=== PATIENT | female | born 1990 | race American Indian/Alaskan Native ===

== ENCOUNTER 2017-06-29 09:41 | Day surgery (SDC) | payer MEDICAID ==
[~2017-06-29 09:41] MED LIST: MARCAINE 0.25% INFILTRATI ONE
--- NOTE | 2017-06-29 10:06 | Short Stay Summary ---
Short Stay Documentation Date of service: 06/29/17 Narrative H&P: Patient is a 27 year old who presents today for permanent sterilization. She has had a Nexplanon in place for 3 years and is now requesting removal of the same - History Principal diagnosis: Undesired fertility H&P: obtained from office Past Medical History: No medical history Past Surgical History: (x2) Social history: - Allergies and Medications Current Medications: Allergies No Known Allergies Allergy (Unverified 06/27/17 17:20) Home Medications Medication Instructions Recorded Confirmed Last Taken Type No Known Home Medications [No 06/27/17 06/27/17 Unknown History Reported Home Medications] - Physical exam General appearance: no acute distress Integumentary: no rash, no growths HEENT: Atraumatic Lungs: Clear to auscultation, Normal air movement Breasts: deferred Heart: Regular rate, Normal S1, Normal S2 Gastrointestinal: normal, normoactive bowel sounds Female Genitourinary: normal Rectal Exam: deferred Extremities: No edema - Brief post op/procedure progress note Date of procedure: 06/29/17 Pre-op diagnosis: Undesired fertility, Presence of Nexplanon Post-op diagnosis: same (with extensive pelvic adhesions) Procedure: 1. Removal of Nexplanon 2. Left partial salpingectomy 3. Right tubal ligation 4. Lysis of Adhesions Anesthesia: GETA Findings: Densely adhered uterus to anterior abdominal wall Large right ovarian cyst, normal left tube and ovary Surgeon: ANI JHA Estimated blood loss: minimal Pathology: list (portion of left fallopian tube) Specimen disposition: to lab Condition: stable - Hospital course Hospital course: unremarkable - Disposition Condition at discharge: Good Disposition: [id number] TO HOME OR SELFCARE Short Stay Discharge Plan Activity: advance as tolerated Weight Bearing Status: Weight Bear as Tolerated Diet: regular Follow up with: ANI JHA MD [Primary Care Provider] - 14 Days Prescriptions: Ibuprofen [Motrin] 800 mg PO Q8HR PRN #30 tablet PRN Reason: Pain oxyCODONE /ACETAMINOPHEN [Percocet 5/325 mg] 2 tab PO Q6H PRN #30 tablet PRN Reason: Pain, Moderate (4-6)
[2017-06-29] MEDS ORDERED: ZEMURON IV ONE (10:30)
[2017-06-29] MEDS ORDERED: XYLOCAINE MPF 2% ONE (10:30)
[2017-06-29] MEDS ORDERED: NEOSTIGMINE ONE (10:30)
[2017-06-29] MEDS ORDERED: ROBINUL ONE (10:30)
[2017-06-29] MEDS ORDERED: SUBLIMAZE ONE ×2 (10:31→12:13)
[2017-06-29] MEDS ORDERED: DIPRIVAN 10 MG/ML IV ONE (10:32)
[2017-06-29] MEDS ORDERED: ZOFRAN ONE (10:35)
[2017-06-29] MEDS ORDERED: PERCOCET 5/325 PO PRN (10:38)
--- NOTE | 2017-06-29 10:38 | Anesthesia Day of Surgery ---
Anesthesia Day of Surgery - Day of Surgery Patient Examined: Yes Patient H&P Reviewed: Yes Patient is NPO: Yes
--- NOTE | 2017-06-29 10:38 | Anesthesia Consultation ---
Anesthesia Consult and Med Hx Date of service: 06/29/17 - Airway Anesthetic Teeth Evaluation: Good ROM Head & Neck: Adequate Mental/Hyoid Distance: Adequate Mallampati Class: Class II Intubation Access Assessment: Probably Good - Pulmonary Exam CTA: Yes - Cardiac Exam Cardiac Exam: RRR - Pre-Operative Health Status ASA Pre-Surgery Classification: ASA2 Proposed Anesthetic Plan: General - Pulmonary Hx Smoking: Yes Hx Asthma: No COPD: No Hx Pneumonia: No - Cardiovascular System Hx Hypertension: No Hx Angina: No - Central Nervous System Hx Seizures: No Hx Psychiatric Problems: No - Gastrointestinal Hx Gastroesophageal Reflux Disease: Yes (with ) - Endocrine Hx Renal Disease: No Hx End Stage Renal Disease: No Hx Liver Disease: No Hx Hypothyroidism: No Hx Hyperthyroidism: No - Hematic Hx Anemia: No Hx Sickle Cell Disease: No - Other Systems Hx Alcohol Use: Yes (occas) Hx Cancer: No
[2017-06-29 10:49] LABS: Hematocrit 38.7 % (30.3-42.9); Hemoglobin 12.6 gm/dl (10.1-14.3)
[2017-06-29] MEDS ORDERED: ANCEF/STERILE WATER 2 GM/20 ML 2 GM/20 ML SYRINGE IV NR (11:00)
[2017-06-29] MEDS ORDERED: PEPCID PO NR (11:00)
[2017-06-29] MEDS ORDERED: MARCAINE 0.25% INFILTRATI ONE ×2 (11:00→13:00)
[2017-06-29] MEDS ORDERED: LACTATED RINGERS 1,000 ML IV SCH (11:00)
[2017-06-29] MEDS ORDERED: VERSED IV NR (11:00)
[2017-06-29] MEDS ORDERED: HEPARIN/NS 5000 UNIT/500ML(CATH LAB) 0 ML IR ONE (12:12)
[2017-06-29] MEDS ORDERED: VERSED ONE (12:12)
[2017-06-29] MEDS ORDERED: XYLOCAINE 2% INFILTRATI ONE (12:13)
[2017-06-29] MEDS ORDERED: DILAUDID ONE (13:09)
--- NOTE | 2017-06-29 13:38 | Operative Report ---
Operative Report Operative Report: Preoperative diagnosis: 1. Presence of [place] 2.Undesired fertility Postoperative diagnosis: Same with extensive pelvic adhesions Procedure: 1. Removal of contraceptive implant 2. Lysis of adhesions 3. Partial left salpingectomy 4. Right tubal ligation Surgeon: Abi Ta Anesthesia: General EBL: Minimal IV fluids: [900] Urine output:[100] Findings: 1. Extensive uterine adhesions to the anterior abdominal wall 2. Large right ovarian cyst 3. Normal left tube and ovary Specimens: Portion of right and left fallopian tube, Nexplanon Contraceptive Implant Complications: None The patient was properly identified as herself. She was then taken to the OR with IV running and in place. She was given general anesthesia without difficulty. She was first placed in a dorsal supine position. Her left arm was then prepped and draped with sterile towels. The contraceptive device was palpated just beneath the skin of the left arm. A small incision was made just beyond the tip of the device. Using hemostats the device was grasped and maneuvered out from underneath the skin. Once completely removed the incision was covered with Steri-Strips. A sterile dressing was then placed over the incision. Following this, She was placed in a dorsal lithotomy position. She was then prepped and draped in normal sterile fashion. Attention was turned to the patient's vagina. Her bladder was drained of clear urine with a red rubber catheter. The speculum was then placed the patient's vagina. The cervix was visualized and grasped with tenaculum. The acorn cannula was then inserted. The surgeon's gloves were changed and attention turned to the patient's abdomen. A small incision was made in the patient's umbilicus incision a 5 mm trocar was placed. Intra-abdominal placement could not be confirmed due to the girth of the patient and abundant scar tissue . A second incision was made in the left upper quadrant lateral to the umbilicus. This incision another trocar was placed and was successful in entering the peritoneum .The laparoscope confirmed intra-abdominal placement. The abdomen was insufflated with CO2 gas to approximately 25 mmHg. initial survey of the pelvis revealed dense amounts of scar tissue involving the uterus and the anterior abdominal wall. A third incision was made in the left lower quadrant and a trocar was attempted to be inserted through this incision however due to scar tissue the trocar was unsuccessful in getting intra-abdominal placement. Attention was turned again to the umbilical incision and this time a longer trocar was placed into that incision which was able to successfully reach the intra-abdominal cavity. Some of the scar tissue was taken down from the anterior abdominal wall enough to visualize both adnexa without difficulty . The left fallopian tube was found and followed out to the fimbriated ends. That tube was cauterized at the portion nearest the cornua, then cauterized across the broad ligament until the tube was completely detached. It was then handed off the field for pathology. The right tube was identified but was noted to be densely adherent to a large cyst on the right ovary and tube was cauterized in the midportion and a small amount attached and handed off for pathology. The cyst on the right ovary was then punctured and allowed to drain. The patient was then taken out of Trendelenburg and all excess fluid was suctioned from the patient's pelvis There was excellent hemostasis at the end of this portion of the procedure. Each tube was handed off for pathology. At this point the abdomen was deflated. All instruments were then removed from the abdomen. The incisions were then closed with 4-0 Monocryl. The incisions were also injected with quarter percent Marcaine. The patient tolerated the procedure well she was then awakened and taken recovery in stable condition. Sponge needle and instrument counts were correct 2.
[2017-06-29] MEDS: MORPHINE IV PRN ×2 (13:40→13:50)
[2017-06-29 18:07] VITALS: BP 103/63
== END 2017-06-29 15:17 | disposition home or self-care (01) ==
LOC: OR 09:41
PROVIDERS: ATTEND Obstetrics & Gynecology
DX: Z30.2 Encounter for sterilization (principal); N83.201 Unspecified ovarian cyst, right side; K21.9 Gastro-esophageal reflux disease without esophagitis; N73.6 Female pelvic peritoneal adhesions (postinfective); Z98.890 Other specified postprocedural states; Z87.891 Personal history of nicotine dependence
CPT/HCPCS: 11982; 36415; 58661; 58670; 84703; 85014; 85018; 88300; 88302; J0690; J1170; J2250; J2270; J2405; J2704; J2710; J3010; J7120; J1644